=== PATIENT | male | born 1980 | race African-American/Black ===

== ENCOUNTER 2020-11-19 16:24 | Emergency (ER) | payer OTHER ==
[~2020-11-19] VITALS: Ht 182.9 cm; Wt 94.8 kg
[2020-11-19 17:23] LABS: AMP/METHAMP POSITIVE (Negative); BARBITURATES Negative (Negative); BENZODIAZEPINES Negative (Negative); COCAINE Negative (Negative); METHADONE Negative (Negative); OPIATES Negative (Negative); PCP Negative (Negative)
[2020-11-19 18:38] VITALS: BP 112/66
== END 2020-11-19 18:39 | disposition home or self-care (01) ==
LOC: ER 16:24
PROVIDERS: Nurse Practitioner Family
DX: F15.10 Other stimulant abuse, uncomplicated (principal); Z59.0 Homelessness

== ENCOUNTER 2020-12-12 01:44 | Emergency (ER) | payer OTHER ==
[~2020-12-12] VITALS: Ht 182.9 cm; Wt 95.3 kg
[2020-12-12 03:28] LABS: ABSOLUTE NEUTROPHILS 4.6 thou/uL (1.4-8.2); BASOPHILS 0.3 % (0.0-2.0); EOSINOPHILS 1.8 % (0.0-3.0); HEMATOCRIT 37.6 % (42.0-52.0); HEMOGLOBIN 12.3 gm/dL (14.0-18.0); LYMPHOCYTES 22.7 % (24.0-44.0); MCH 30.1 pg (26.0-34.0); MCHC 32.7 g/dL (28.0-37.0); MONOCYTES 8.9 % (1.0-8.0); PLATELET COUNT 148 thou/uL (150-400); POLYS 66.3 % (36.0-66.0); RBC 4.09 mil/uL (4.50-6.00); RDW 14.3 % (10.5-14.5); WBC 6.9 thou/uL (4.0-11.0)
[2020-12-12 03:31] LABS: ANION GAP 4 mmol/L (7-16); BUN 14 mg/dL (7-18); CALCIUM 8.4 mg/dL (8.5-10.1); CHLORIDE 106 mmol/L (98-107); CO2 29 mmol/L (21-32); GLUCOSE 113 mg/dL (74-106); SODIUM 139 mmol/L (136-145)
[2020-12-12 03:42] LABS: ALBUMIN 2.9 g/dL (3.4-5.0); SGOT 21 U/L (15-37); SGPT 32 U/L (16-63); TOTAL BILIRUBIN 0.2 mg/dL (0.2-1.0); TOTAL PROTEIN 5.2 g/dL (6.4-8.2); TROPONIN-I <0.06 ng/mL (<0.06)
[2020-12-12] MEDS ORDERED: LASIX 20 MG TAB20 MG PO (04:29)
[2020-12-12 04:36] VITALS: BP 97/50
[2020-12-12 04:52] LABS: LARGE PLATELETS RARE
== END 2020-12-12 04:40 | disposition home or self-care (01) ==
LOC: ER 01:44
PROVIDERS: Emergency Medicine
DX: R60.0 Localized edema (principal)

== ENCOUNTER 2021-03-26 23:42 | Emergency (ER) | payer OTHER ==
[~2021-03-26] VITALS: Ht 182.9 cm; Wt 93.0 kg
[~2021-03-26 23:42] MED LIST: LASIX 20 MG TAB20 MG PO
[2021-03-27 00:59] VITALS: BP 127/78
== END 2021-03-27 01:00 | disposition home or self-care (01) ==
LOC: ER 23:42
DX: R19.7 Diarrhea, unspecified (principal)